=== PATIENT | male | born 1990 | race Caucasian/White ===

== ENCOUNTER 2018-03-25 21:03 | Emergency (ER) | payer OTHER ==
[~2018-03-25] VITALS: Ht 175.3 cm; Wt 85.3 kg
[2018-03-25 21:06] VITALS: BP 129/56
--- NOTE | 2018-03-25 21:10 | NUR ---
pt ambulated to er bed 07
--- NOTE | 2018-03-25 21:11 | NUR ---
Report given to Cindy RIVERA.
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
[2018-03-25] MEDS ORDERED: KETOROLAC 60 MG/2 ML VIAL IM ONE (21:20)
--- NOTE | 2018-03-25 22:13 | NUR ---
PT SITTNG UP IN BED, WAITING FOR X RAY RESULTS. MD MADE AWARE OF STATUS. VITALS STABLE.
[2018-03-25 22:44] VITALS: BP 129/56
--- NOTE | 2018-03-25 22:44 | NUR ---
Patient discharged with v/s stable. Written and verbal after care instructions given and explained. Patient verbalized understanding. Ambulatory with steady gait. All questions addressed prior to discharge. Advised to follow up with PMD. medication prescription naproxen was given.
== END 2018-03-25 22:44 | disposition home or self-care (01) ==
LOC: MED 21:03
DX: R07.89 Other chest pain (principal); R51 Headache
CPT/HCPCS: 71045; 96372; 99283; J1885